=== PATIENT | female | born 1960 | race Hispanic/Latino ===

== ENCOUNTER 2017-10-21 05:53 | Day surgery (SDC) | payer OTHER ==
[2017-10-21] MEDS ORDERED: NACL BACTERIOSTATIC INFILTRATI ONE (06:30)
[2017-10-21] MEDS ORDERED: LACTATED RINGERS 1,000 ML IV SCH (07:00)
[2017-10-21] MEDS ORDERED: VERSED IV NR (07:00)
--- NOTE | 2017-10-21 07:00 | Anesthesia Consultation ---
Anesthesia Consult and Med Hx Date of service: 10/21/17 - Airway Anesthetic Teeth Evaluation: Partials ROM Head & Neck: Adequate Mental/Hyoid Distance: Adequate Mallampati Class: Class II Intubation Access Assessment: Probably Good - Pulmonary Exam CTA: Yes - Cardiac Exam Cardiac Exam: RRR - Pre-Operative Health Status ASA Pre-Surgery Classification: ASA2 Proposed Anesthetic Plan: General - Cardiovascular System Hx Hypertension: Yes - Central Nervous System Hx Psychiatric Problems: No - Gastrointestinal Hx Gastroesophageal Reflux Disease: Yes (Took omeprazole this am, presently asymptomatic) - Endocrine Hx Hypothyroidism: Yes - Other Systems Hx Cancer: No - Additional Comments Anesthesia Medical History Comments: hypercholesterolemia
--- NOTE | 2017-10-21 07:00 | Anesthesia Day of Surgery ---
Anesthesia Day of Surgery - Day of Surgery Patient Examined: Yes Patient H&P Reviewed: Yes Patient is NPO: Yes
[2017-10-21] MEDS ORDERED: DILAUDID IV PRN (07:02)
[2017-10-21] MEDS ORDERED: PERCOCET 5/325 PO PRN (07:02)
[2017-10-21] MEDS ORDERED: ZOFRAN IV PRN (07:02)
[2017-10-21] MEDS ORDERED: GELFOAM TP ONE ×2 (07:19→08:51)
[2017-10-21] MEDS ORDERED: FLOXIN OTIC ONE (07:19)
[2017-10-21] MEDS ORDERED: XYLOCAINE 2%/ EPI 1:50,000 (DENTAL) INFILTRATI ONE ×2 (07:19→08:51)
[2017-10-21] MEDS ORDERED: ADRENALIN ONE (07:20)
[2017-10-21] MEDS ORDERED: XYLOCAINE MPF 2% ONE (07:29)
[2017-10-21] MEDS ORDERED: SUBLIMAZE ONE (07:30)
[2017-10-21] MEDS ORDERED: DIPRIVAN 10 MG/ML IV ONE ×2 (07:30→09:17)
[2017-10-21] MEDS ORDERED: DECADRON ONE (08:00)
[2017-10-21] MEDS ORDERED: TRANSDERM-SCOP TD NR (08:00)
[2017-10-21] MEDS ORDERED: NEO SYNEPHRINE/NS Syringe(OR USE) IV ONE (08:00)
[2017-10-21] MEDS ORDERED: ANCEF/STERILE WATER 2 GM/20 ML IV NR (08:00)
[2017-10-21] MEDS ORDERED: ZOFRAN ONE (08:00)
[2017-10-21] MEDS ORDERED: NACL 0.9% IR ONE (08:51)
[2017-10-21] MEDS ORDERED: ADRENALIN IV ONE (08:51)
[2017-10-21] MEDS ORDERED: DILAUDID ONE (09:20)
--- NOTE | 2017-10-21 10:09 | Short Stay Summary ---
Short Stay Documentation Date of service: 10/21/17 - Allergies and Medications Current Medications: Allergies Sulfa (Sulfonamide Antibiotics) Allergy (Verified 10/10/17 17:30) itching, hives Home Medications Medication Instructions Recorded Confirmed Last Taken Type AtorvaSTATin [Lipitor] 20 mg PO QHS 10/10/17 10/10/17 Unknown History Dicyclomine [Bentyl] 10 mg PO TIDAC 10/10/17 10/10/17 Unknown History Levothyroxine [Synthroid] 75 mcg PO QAM 10/10/17 10/10/17 Unknown History Lisinopril [Zestril TAB] 2.5 mg PO QDAY 10/10/17 10/10/17 Unknown History Loratadine [Claritin] 10 mg PO PRN PRN 10/10/17 10/10/17 Unknown History Meloxicam [Mobic] 7.5 mg PO PRN PRN 10/10/17 10/10/17 Unknown History Omeprazole 20 mg PO DAILY 10/10/17 10/10/17 Unknown History traMADol [Ultram] 50 mg PO Q6HR PRN 10/10/17 10/10/17 Unknown History Active Medications Hydromorphone HCl (Dilaudid) 0.5 mg IV Q10MIN PRN PRN Reason: Pain , Severe (7-10) Stop: 10/21/17 12:00 Lactated Ringer's (Lactated Ringers) 1,000 mls @ 100 mls/hr IV DIRECT OBDULIO Last Admin: 10/21/17 07:29 Dose: 100 mls/hr Midazolam HCl (Versed) 2 mg IV PREOP NR Stop: 10/21/17 23:59 Last Admin: 10/21/17 07:30 Dose: 2 mg - Brief post op/procedure progress note Date of procedure: 10/21/17 Pre-op diagnosis: Left chronic adhesive otitis media; Conductive hearing loss left ear Post-op diagnosis: same Procedure: 1. Left ear tympanoplasty with tragal cartilage graft reinforcement 2. Microdissection using the operating microscope Anesthesia: other (General via laryngeal mask anesthesia) Findings: Retracted atrophic tympanic membrane adherent to distal incus and IS joint with retraction into the sinus tympani. OPartial erosion of distal incus. Surgeon: BRITTANY CLARKE Estimated blood loss: minimal Pathology: none Condition: stable - Disposition Condition at discharge: Good Short Stay Discharge Plan Activity: advance as tolerated Diet: advance as tolerated Wound: keep clean and dry, per your surgeon's advice Special Instructions: no heavy lifting Prescriptions: HYDROcodone/ACETAMINOPHEN [[place] 7.5-325 Tablet] 1 each PO Q8HR #10 tablet Promethazine [Phenergan TAB] 12.5 mg PO Q8HR PRN #7 tab PRN Reason: Nausea
--- NOTE | 2017-10-21 10:52 | Post Anesthesia Evaluation ---
- Post Anesthesia Evaluation Patient Participated: Yes Airway Patent: Yes Stable Respiratory Function: Yes Temp > 96.8F: Yes Pain Manageable: Yes Adequeate Hydration: Yes Anesthesia Complications: No
[2017-10-21] MEDS ORDERED: NORCO 7.5/325 PO PRN (11:00)
--- NOTE | 2017-10-21 13:11 | Operative Report ---
PRINCIPAL DIAGNOSES: 1. Left chronic adhesive otitis media. 2. Conductive hearing loss in her left ear. PRINCIPAL SURGICAL PROCEDURE: 1. Left tympanoplasty with tragal cartilage reinforcement. 2. Harvesting of tragal cartilage. 3. Microdissection using the operating microscope. SURGEON: Jhony Rodriguez MD ANESTHESIA: General via laryngeal mask anesthesia. COMPLICATIONS: None. SPECIMENS: None. ESTIMATED BLOOD LOSS: Less than 5 mL of blood. INDICATION FOR SURGERY: The patient is a 57-year-old female who presented with chronic adhesive otitis media with tympanic membrane that was very atrophic and adherent to distal incudostapedial joint and with retraction into the sinus tympani and with conductive hearing loss in the left ear. Left tympanoplasty with possible ossicular chain reconstruction and with reinforcement of the tympanic membrane, the tragal cartilage were all recommended. DESCRIPTION OF PROCEDURE: The patient was taken to the operating room and was placed on the operating table in supine position. After satisfactory plane of general anesthesia via laryngeal mask anesthesia was achieved, the head was gently turned to the right side exposing the left ear. Betadine was used to clean the endaural area and retroauricular area. In total of 1.6 mL of 2% Xylocaine in 1:50,000 epinephrine was injected into the tragal area into the lateral aspect of external ear canal and retroauricular area. Ear was then prepped and draped in usual manner. First, we harvested the tragal cartilage by making a small incision maybe a 6 mm long on the medial side of the tragus 3 mm from the end of the tragus. Incision was carried through the skin and to the tragus and through the tragal cartilage and then with Iris scissors, we elevated the soft tissue off the perichondrium of the tragus on either side and then harvested the piece of cartilage measuring at least 5 x 6 mm. Cauterized the donor site with bipolar cautery and sutured the incision using 5-0 Prolene on the tapered needle using mattress sutures. We then made a retroauricular incision through the skin and subcutaneous tissue to the plane of fascia covering temporalis muscles superiorly and periosteum covering mastoid inferiorly. Bleeding was stopped using Bovie cautery. Fascia of the temporalis muscle was harvested. T-type incision was made in the periosteum with a horizontal incision along the temporal line and second incision perpendicular towards the mastoid tip. Periosteal flaps were elevated superiorly, posteriorly and anteriorly. Posterior bony canal was identified. Skin line in posterior canal was elevated and then incised with a #11 blade from 6 o'clock to 12 o'clock, then self-retaining retractors were inserted. We brought in the operating microscope and procedure was continued on the operating microscope. First we made 2 incisions in the external auditory canal 1 at 6 o'clock and second one at 12 o'clock and tympanomeatal flap was elevated. We opened the middle ear in the posterior inferior quadrant and then very carefully elevated tympanic membrane that was atrophic and then had sinking into the sinus tympani and this elevation was successfully performed without performing the very thin tympanic membrane. Then from elevated tympanic membrane from ____ superior close to the neck of the malleus. We elevated tympanic membrane of the distal incus all the way to the incudostapedial joint. Once this was completed, we examined the joint and there was lateral erosion of the distal incus, but that was still in good contact and we checked the mobility of the malleus, incudostapedial joint was moving as well. We decided not to disturb the ____ joint. Tragal cartilage was then placed on a Fritz block. It was cut in a very thin layer measuring about 1/3 mm thick. Then, we used the fascia. The fascia placed on a Fritz block, trended, placed medial to the tympanic membrane as underlying graft and then supported with dried pieces of Gelfoam and then placed a thin piece of cartilage over the incudostapedial joint on its lateral surface and then laid the fascia at the tympanomeatal flap over it and against the posterior bony canal wall. We then packed external auditory canal with more Gelfoam soaked with ofloxacin and then removed self-retaining retractors, closed. Periosteal flaps and subcutaneous layer of skin incision with 4-0 Vicryl, placed a 1/4 inch [place] drain and closed the skin incision with 5-0 fast absorbing gut in a running locking manner. Mastoid dressing was applied. Following completion of the surgical procedure, the patient was extubated in the operating room and then transferred to recovery room in stable and satisfactory condition. JOB# [id number] ALTAF/DHARA
[2017-10-21 14:05] VITALS: BP 107/66
== END 2017-10-21 11:56 | disposition home or self-care (01) ==
LOC: OR 05:53
PROVIDERS: ATTEND Otolaryngology Sleep Medicine
DX: H73.92 Unspecified disorder of tympanic membrane, left ear (principal); H66.92 Otitis media, unspecified, left ear; H90.2 Conductive hearing loss, unspecified; I10 Essential (primary) hypertension; K21.9 Gastro-esophageal reflux disease without esophagitis; E03.9 Hypothyroidism, unspecified; E78.00 Pure hypercholesterolemia, unspecified; Z88.2 Allergy status to sulfonamides; Z79.899 Other long term (current) drug therapy; Z82.49 Family history of ischemic heart disease and other diseases of the circulatory system
CPT/HCPCS: 21235; 69631; A4649; J0171; J0690; J1100; J1170; J2250; J2370; J2405; J2704; J3010; J7120